=== PATIENT | female | born 1975 | race Caucasian/White ===

== ENCOUNTER 2017-10-08 15:05 | Emergency (ER) | payer BC ==
[~2017-10-08] VITALS: Ht 165.1 cm; Wt 72.7 kg
[2017-10-08 15:08] VITALS: BP 117/69; TEMP 98.2
[2017-10-08] MEDS ORDERED: PAXIL40 MG PO (15:16)
[2017-10-08] MEDS ORDERED: LIPITOR 40MG TA40 MG PO (15:16)
[2017-10-08] MEDS ORDERED: ALDACTONE50 MG PO (15:16)
[2017-10-08] MEDS ORDERED: NORCO 325 MG-51 TAB PO (16:20)
[2017-10-08 17:05] VITALS: PULSE 82
== END 2017-10-08 17:05 | disposition home or self-care (01) ==
LOC: COL.ER 15:05
DX: S62.664A Nondisplaced fracture of distal phalanx of right ring finger, initial encounter for closed fracture (principal); F32.9 Major depressive disorder, single episode, unspecified; Z23 Encounter for immunization; E07.9 Disorder of thyroid, unspecified; W23.0XXA Caught, crushed, jammed, or pinched between moving objects, initial encounter; Y92.89 Other specified places as the place of occurrence of the external cause

== ENCOUNTER 2024-01-02 05:49 | Day surgery (SDC) | payer OTHER ==
[~2024-01-02] VITALS: Ht 165.1 cm; Wt 80.3 kg
[~2024-01-02 05:49] MED LIST: ALDACTONE50 MG PO; LIPITOR 40MG TA40 MG PO; LR 1,000 ML IV SCH; NORCO 325 MG-51 TAB PO; Ondansetron 4 MG/2 ML VIAL IV PRN; PAXIL40 MG PO
[2024-01-02] MEDS ORDERED: TOPROL XL 25MG25 MG PO (06:07)
[2024-01-02] MEDS ORDERED: REPATHA PU420 MG/3.5 SQ (06:08)
[2024-01-02 06:42] VITALS: BP 136/86; PULSE 77; TEMP 97.3
[2024-01-02] MEDS ORDERED: REPATHA SU140 MG/1 M SQ (06:50)
[2024-01-02] MEDS ORDERED: Lidocaine PF 2% (20 MG/ML) 5 ML VIAL ONE (07:26)
[2024-01-02 08:10] VITALS: BP 125/67; PULSE 70
[2024-01-02 08:25] VITALS: BP 127/77; PULSE 63
--- NOTE | 2024-01-02 08:50 | NUR ---
0810- PT BACK AT [facility] 3. ASSISTED TO CHAIR WITH RN ASSIST. MONITORS AND ALARMS SET. VS OBTAINED. NO NAUSEA OR PAIN NOTED. PT REQUESTING APPLE JUICE AND JELLO. 0825- TOLERATING FOOD AND WATER. NO COMPLAINTS OF PAIN OR NAUSEA. PT STATES SHE FEELS GOOD AND IS READY TO GO HOME. 0832- DISCONTINUED IV. 0840- PT GIVEN DISCHARGE INSTRUCTIONS ABOUT GASTROPERSIS, ANESTHESIA AND EGD. RETURN TO WORK FORM GIVEN TO PATIENT. ALL QUESTIONS ANSWERED IN FULL. 0845- DISCHARGED FROM HOSPTIAL VIA WHEELCHAIR TO PRIVATE VEHCILE DRIVEN BY FRIEND BENNY.
== END 2024-01-02 08:45 ==
LOC: SDCO 05:49
DX: K29.50 Unspecified chronic gastritis without bleeding (principal); K22.89 Other specified disease of esophagus; K44.9 Diaphragmatic hernia without obstruction or gangrene; K31.89 Other diseases of stomach and duodenum; K21.9 Gastro-esophageal reflux disease without esophagitis; K80.20 Calculus of gallbladder without cholecystitis without obstruction; M62.08 Separation of muscle (nontraumatic), other site
CPT/HCPCS: J2704; J7120

== ENCOUNTER 2024-01-09 11:20 | Day surgery (SDC) | payer OTHER ==
[~2024-01-09] VITALS: Ht 165.1 cm; Wt 77.7 kg
[~2024-01-09 11:20] MED LIST changes: -Ondansetron 4 MG/2 ML VIAL IV PRN; +REPATHA PU420 MG/3.5 SQ; +REPATHA SU140 MG/1 M SQ; +TOPROL XL 25MG25 MG PO
[2024-01-09] MEDS ORDERED: LR 1,000 ML IV SCH (12:00)
[2024-01-09] MEDS ORDERED: Succinylcholine PF 200 MG/10 ML SYRINGE IV ONE (12:18)
[2024-01-09] MEDS ORDERED: Rocuronium 50 MG/5 ML Multi-Dose VIAL ONE (12:19)
[2024-01-09] MEDS ORDERED: Lidocaine PF 2% (20 MG/ML) 5 ML VIAL ONE (12:19)
[2024-01-09] MEDS ORDERED: Indocyanine Green 12.5 MG in Water For Injection,Sterile 2.5 ML IV ONE (12:30)
[2024-01-09 12:51] VITALS: BP 132/90; PULSE 84; TEMP 98
[2024-01-09 12:59] LABS: HEMATOCRIT 40.9 % (37.0-47.0); HEMOGLOBIN 14.4 g/dl (12.5-16.0); MEAN CELL VOLUME 94 fl (80.0-100.0); MEAN CORPUSCULAR HEMOGLOBIN 33 pg (27-31); MEAN CORPUSCULAR HGB CONC 35 g/dl (33.0-37.0); MEAN PLATELET VOLUME 9.3 fl (7.4-10.4); PLATELET COUNT 239 K/mm3 (130-400); RED BLOOD COUNT 4.36 M/mm3 (4.10-5.30); REDCELL DISTRIBUTION WIDTH-CV 11.8 % (11.5-14.5)
[2024-01-09] MEDS ORDERED: Topical Skin Adhesive 1 EACH (1 ML) TOP ONE (13:00)
[2024-01-09 13:24] LABS: ALBUMIN 3.8 g/dL (3.5-5.0); BILIRUBIN,TOTAL 0.8 mg/dL (0.2-1.2); CALCIUM 9.2 mg/dL (8.4-10.2); CREATININE, serum 0.67 mg/dL (0.57-1.11); POTASSIUM 3.8 mEq/L (3.5-4.5); TOTAL PROTEIN 7.3 g/dl (6.2-8.1)
--- NOTE | 2024-01-09 13:37 | NUR ---
transfer and line up worker received a message that pt is in the hospital and is scheduled to have surgery at 1330 today for gall bladder surgery. It is reported that she is single and her son, barron is in the and set to leave tomorrow. Pt is reccomended for monitoring following the surgery ~2 weeks time. JUNIE called [employer] Notification Line and reported information. Case # [id number] JUNIE informed BELEM Iglesias of notification being sent and they will deliver message to pt's command. Director Kristy Barrett aware for verification from [employer].
[2024-01-09] MEDS ORDERED: fentaNYL 50 MCG/ML 2 ML VIAL ONE (14:08)
[2024-01-09] MEDS ORDERED: NS 10 ML IV ONE (14:09)
[2024-01-09] MEDS ORDERED: NORCO 325 MG-51 TAB PO (14:12)
[2024-01-09] MEDS ORDERED: MOTRIN 600600 MG/TAB PO (14:12)
[2024-01-09] MEDS ORDERED: Ondansetron 4 MG/2 ML VIAL ONE (14:20)
[2024-01-09] MEDS ORDERED: dexAMETHasone 10 MG/ML VIAL ONE (14:20)
[2024-01-09] MEDS ORDERED: Phenylephrine 10 MG/ML VIAL ONE (14:37)
[2024-01-09] MEDS ORDERED: Ketorolac 30 MG/ML VIAL ONE (14:41)
[2024-01-09] MEDS ORDERED: HYDROmorphone 1 MG/1 ML SYRINGE [PACU/SDC ONLY] IV PRN (14:45)
[2024-01-09] MEDS ORDERED: fentaNYL 50 MCG/ML 1 ML SYRINGE/VIAL [PACU/SDC ONLY] IV PRN (14:45)
[2024-01-09] MEDS ORDERED: Meperidine 50 MG/ML 1 ML VIAL IV PRN (14:45)
[2024-01-09] MEDS ORDERED: hydrALAZINE 20 MG/ML 1 ML VIAL IV PRN (14:45)
[2024-01-09] MEDS ORDERED: Ondansetron 4 MG/2 ML VIAL IV PRN (14:45)
[2024-01-09] MEDS ORDERED: LR 1,000 ML IV ONE (15:02)
[2024-01-09 16:00] VITALS: BP 139/81; PULSE 75; TEMP 97.9
[2024-01-09 16:15] VITALS: BP 138/72; PULSE 72
[2024-01-09 16:30] VITALS: BP 142/72; PULSE 75
--- NOTE | 2024-01-09 16:55 | NUR ---
1600-PT TO [facility] 8 PER CART FROM PACU. REPORT RECEIVED. VS OBTAINED. CALL LIGHT WITHIN REACH. PT DENIES ANY NEEDS. 1605-PT TOLERATING APPLE JUICE, JELLO, AND ICE CREAM. 1615-PT CONTINUES TO DENY ANY NEEDS. 1630-NO CHANGE. PT DENIES ANY NEEDS. 1635-IV DC'D AT THIS TIME. 1640-DISCHARGE EDUCATION COMPLETED WITH PT AND HER FAMILY. THEY VERBALIZED UNDERSTANDING OF HOME AND FOLLOW UP CARE. ALL QUESTIONS ANSWERED. DISCHARGE PAPERWORK GIVEN TO PT. 1645-PT ABLE TO DRESS SELF WITHOUT ASSISTANCE. 1655-PT OFF UNIT PER WHEELCHAIR. PT DISCHARGED TO HOME WITH HER FAMILY PER PERSONAL VEHICLE.
[2024-01-09 17:42] VITALS: BP 140/70; PULSE 76; TEMP 98.5
== END 2024-01-09 16:55 | disposition home or self-care (01) ==
LOC: SDCO 11:20
PROVIDERS: Surgery
DX: K80.10 Calculus of gallbladder with chronic cholecystitis without obstruction (principal); M62.08 Separation of muscle (nontraumatic), other site; K21.9 Gastro-esophageal reflux disease without esophagitis; K44.9 Diaphragmatic hernia without obstruction or gangrene; Z80.0 Family history of malignant neoplasm of digestive organs; Z87.891 Personal history of nicotine dependence
CPT/HCPCS: J0690; J1100; J1885; J2371; J2405; J2704; J3010; J7120